=== PATIENT | male | born 1945 | race Two or more races ===

== ENCOUNTER 2017-05-08 11:59 | Inpatient (IN) | payer OTHER ==
[2017-05-08 12:17] VITALS: BMI 27.1
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
[2017-05-08] MEDS ORDERED: ACETAMINOPHEN 325 MG TABLET (FP) PO PRN (14:09)
[2017-05-08] MEDS ORDERED: MENTHOL/PHENOL 1 EACH UD MM PRN (14:09)
[2017-05-08] MEDS ORDERED: P-EPHED 60MG/TRIPROLIDI 2.5MG TABLET PO PRN (14:09)
[2017-05-08] MEDS ORDERED: MAGNESIUM CITRATE 300 ML BOTTLE PO PRN (14:09)
[2017-05-08] MEDS ORDERED: MAG HYDROX/AL HYDROX/SIMETH 30 ML UNIT-DOSE CUP PO PRN (14:09)
[2017-05-08] MEDS ORDERED: MAGNESIUM HYDROX 2400MG/30ML ORAL SUSPENSION 30 ML CUP PO PRN (14:09)
[2017-05-08] MEDS ORDERED: IBUPROFEN 400 MG TABLET (FP) PO PRN (14:09)
[2017-05-08] MEDS ORDERED: guaiFENesin/D-METHORPHAN HB 10 ML UNIT-DOSE CUPS PO PRN (14:09)
[2017-05-08] MEDS ORDERED: LOPERAMIDE HCL 2 MG CAPSULE PO PRN (14:09)
[2017-05-08] MEDS ORDERED: diphenhydrAMINE HCL 50 MG CAPSULE PO PRN (14:09)
[2017-05-08] MEDS ORDERED: METHADONE HCL 10 MG TABLET (FOR DETOX USE ONLY) PO ONE ×2 (14:55→23:00)
[2017-05-08] MEDS: diazePAM 5 MG TABLET PO PRN (16:48)
[2017-05-08] MEDS: NICOTINE 21 MG/24 HOURS TOPICAL PATCH TD SCH (16:51)
[2017-05-08 19:30] LABS: URINE APPEARANCE CLEAR; URINE BILIRUBIN NEGATIVE (NEGATIVE); URINE BLOOD NEGATIVE (NEGATIVE); URINE COLOR AMBER; URINE GLUCOSE (UA) NEGATIVE (NEGATIVE); URINE KETONE NEGATIVE (NEGATIVE); URINE LEUK ESTERASE NEGATIVE (NEGATIVE); URINE NITRITE NEGATIVE (NEGATIVE); URINE UROBILINOGEN 4.0 E.U/dl mg/dL (0.2-1.0)
[2017-05-08 19:41] LABS: HIV 1 & 2 AB NEGATIVE; HIV 1 AGp24 NEGATIVE
[2017-05-08 21:23] LABS: URINE PROTEIN 1+ (NEGATIVE)
[2017-05-08 21:31] LABS: GRANULAR CASTS 3 /lpf; URINE HYALINE CAST 7 /lpf; URINE MUCUS MODERATE; URINE RBC 2 /hpf (0-3); URINE WBC 2 /hpf (3-5)
[2017-05-08] MEDS: THIAMINE HCL 100 MG TABLET (FP) PO SCH (22:17)
[2017-05-09] MEDS: diazePAM 5 MG TABLET PO PRN ×2 (05:07→18:33)
--- NOTE | 2017-05-09 09:07 | CONSULT ---
[facility] Psychiatric Consult - Data Date of interview: 05/09/17 Admission source: [facility] Identifying data: This is 71 years old male with psychiatric hospitalization history intoxicated with: Cocaine, Xanax, Opioids, Nicotine, histopry of Alcohol abuse as well Substance Abuse History: Urine Drug Screen Results: TIM-Cocaine, OPI-Opiates, BZO-Benzodiazepines, MTD-Methadone. - Smoking Cessation. Smoking history: Current every day smoker. Have you smoked in the past 12 months: Yes. Aproximately how many cigarettes per day: 10. Hx Chewing Tobacco Use: No. Initiated information on smoking cessation: Yes. 'Breaking Loose' booklet given : 05/08/17. - Substance & Tx. History. Hx Alcohol Use: No. Hx Substance Use: Yes. Substance Use Type: Cocaine, Heroin. Hx Substance Use Treatment: Yes ( [facility]). - Substances Abused. Heroin. Route: Inhalation. Frequency: Daily. Amount used: 8 bags. Age of first use: 56. Date of Last Use: . Cocaine. Route: Inhalation. Frequency: 1-2 times per week. Amount used: $10. Age of first use: 56. Date of Last Use: 05/05/17 Medical History: Left Ankle deformity, denies any other significant medical problem Psychiatric History: Patient reports history of depression, as per computer carries MDD, denies suicidal history, reports unclear psychiatric admission on more then 10 years ago, reports currently taking : Zoloft 50mg poqd Physical/Sexual Abuse/Trauma History: Denies Additional Comment: Urine Drug Screen Results: TIM-Cocaine, OPI-Opiates, BZO- Benzodiazepines, MTD-Methadone Mental Status Exam - Mental Status Exam Alert and Oriented to: Person Patient Appearance: Well Groomed Mood: Apprehensive Affect: Mood Congruent Patient Behavior: Cooperative Speech Pattern: Appropriate Voice Loudness: Normal Thought Process: Goal Oriented Thought Disorder: Being Controlled Hallucinations: Denies Suicidal Ideation: Denies Homicidal Ideation: Denies Insight/Judgement: Fair Sleep: Difficulty falling asleep Appetite: Weight loss Muscle strength/Tone: Mild Hypotonicity Gait/Station: Deferred Additional Comments: Zoloft 50mg poqd Psychiatric Findings - Problem List ([place] 1, 2,3) (1) Benzodiazepine dependence Current Visit: No Status: Acute (2) Cocaine dependence Current Visit: No Status: Acute Qualifiers: Substance use status: uncomplicated Qualified Code(s): F14.20 - Cocaine dependence, uncomplicated (3) Major depressive disorder, single episode Current Visit: No Status: Acute (4) Opioid dependence Current Visit: No Status: Acute Qualifiers: Substance use status: in withdrawal Qualified Code(s): F11.23 - Opioid dependence with withdrawal (5) Substance induced mood disorder Current Visit: No Status: Acute (6) Alcohol abuse Current Visit: No Status: Chronic (7) Benzodiazepine abuse Current Visit: No Status: Chronic (8) Nicotine dependence Current Visit: No Status: Chronic Qualifiers: Nicotine product type: cigarettes Substance use status: uncomplicated Qualified Code(s): F17.210 - Nicotine dependence, cigarettes, uncomplicated - Initial Treatment Plan Initial Treatment Plan: Zoloft 50mg poqd
[2017-05-09] MEDS ORDERED: METHADONE HCL 10 MG TABLET (FOR DETOX USE ONLY) PO ONE (10:00)
[2017-05-09 10:34] LABS: ALK PHOS 98 U/L (45-117); ANION GAP 4 (8-16); BILIRUBIN,TOTAL 0.9 mg/dL (0.2-1.0); CALCIUM 8.9 mg/dL (8.5-10.1); CO2 29 mmol/L (21-32); GLUCOSE,RANDOM 81 mg/dL (74-106); SGOT/AST 117 U/L (15-37); SGPT/ALT 77 U/L (12-78); TOT PROT 7.3 g/dl (6.4-8.2)
[2017-05-09] MEDS: PRENATAL VITAMINS W/ FOLIC ACID TABLET (FP) PO SCH (10:35)
[2017-05-09] MEDS: SERTRALINE HCL 50 MG TABLET (FP) PO SCH (10:35)
[2017-05-09] MEDS: NICOTINE 21 MG/24 HOURS TOPICAL PATCH TD SCH (10:36)
[2017-05-09] MEDS: NICOTINE POLACRILEX 2 MG GUM BUC PRN (10:37)
[2017-05-09 10:50] LABS: MEAN PLT VOLUME 11.2 fl (7.5-11.1); RDW 14.5 % (11.9-15.9); WHITE BLOOD COUNT 2.5 K/mm3 (4.0-10.0)
--- NOTE | 2017-05-09 11:04 | PN ---
BHS COWS - Scale Resting Pulse: 0= CT 80 or Below Sweatin= Chills/Flushing Restless Observation: 3= Extraneous Movement Pupil Size: 2= Moderately Dilated Bone or Joint Aches: 4=Acute Joint/Muscle Pain Runny Nose/ Eye Tearin= Nasal Congestion GI Upset > 30mins: 1= Stomach Cramp Tremor Observation of Outstretched Hands: 2= Slight Tremor Visible Yawning Observation: 1= 1-2x During Session Anxiety or Irritability: 2=Irritable/Anxious Goose Flesh Skin: 0=Smooth Skin COWS Score: 17 BHS Progress Note (SOAP) Subjective: ANXIETY,SWEATS/CHILLS,FATIGUE. DENIES HX HTN BUT STATES BP GOES HIGH WHEN DETOXING. Objective: 05/09/17 11:03 Vital Signs Temperature 99.3 F 05/09/17 09:50 Pulse Rate 46 L 05/09/17 09:50 Respiratory Rate 18 05/09/17 09:50 Blood Pressure 155/77 05/09/17 09:50 O2 Sat by Pulse Oximetry (%) Laboratory Last Values WBC 2.5 K/mm3 (4.0-10.0) L 05/09/17 06:00 RBC 4.01 M/mm3 (4.00-5.60) 05/09/17 06:00 Hgb 12.0 GM/dL (11.7-16.9) 05/09/17 06:00 Hct 36.4 % (35.4-49) 05/09/17 06:00 MCV 91.0 fl (80-96) 05/09/17 06:00 MCH 30.0 pg (25.7-33.7) 05/09/17 06:00 MCHC 33.0 g/dl (32.0-35.9) 05/09/17 06:00 RDW 14.5 % (11.9-15.9) 05/09/17 06:00 MPV 11.2 fl (7.5-11.1) H D 05/09/17 06:00 Sodium 138 mmol/L (136-145) 05/09/17 06:00 Potassium 4.3 mmol/L (3.5-5.1) 05/09/17 06:00 Chloride 105 mmol/L (98-107) 05/09/17 06:00 Carbon Dioxide 29 mmol/L (21-32) 05/09/17 06:00 Anion Gap 4 (8-16) L 05/09/17 06:00 BUN 23 mg/dL (7-18) H D 05/09/17 06:00 Creatinine 1.0 mg/dL (0.7-1.3) 05/09/17 06:00 Creat Clearance w eGFR > 60 (>60) 05/09/17 06:00 Random Glucose 81 mg/dL (74-106) 05/09/17 06:00 Calcium 8.9 mg/dL (8.5-10.1) 05/09/17 06:00 Total Bilirubin 0.9 mg/dL (0.2-1.0) D 05/09/17 06:00 AST 117 U/L (15-37) H 05/09/17 06:00 ALT 77 U/L (12-78) 05/09/17 06:00 Alkaline Phosphatase 98 U/L (45-117) 05/09/17 06:00 Total Protein 7.3 g/dl (6.4-8.2) 05/09/17 06:00 Albumin 3.0 g/dl (3.4-5.0) L 05/09/17 06:00 Urine Color [place] 05/08/17 18:00 Urine Appearance Clear 05/08/17 18:00 Urine pH 5.0 (5.0-8.0) 05/08/17 18:00 Ur Specific [place] >= 1.030 (1.005-1.025) H 05/08/17 18:00 Urine Protein 1+ (NEGATIVE) H 05/08/17 18:00 Urine Glucose (UA) Negative (NEGATIVE) 05/08/17 18:00 Urine Ketones Negative (NEGATIVE) 05/08/17 18:00 Urine Blood Negative (NEGATIVE) 05/08/17 18:00 Urine Nitrite Negative (NEGATIVE) 05/08/17 18:00 Urine Bilirubin Negative (NEGATIVE) 05/08/17 18:00 Urine Urobilinogen 4.0 e.u/dl mg/dL (0.2-1.0) 05/08/17 18:00 Ur Leukocyte Esterase Negative (NEGATIVE) 05/08/17 18:00 Urine RBC 2 /hpf (0-3) 05/08/17 18:00 Urine WBC 2 /hpf (3-5) 05/08/17 18:00 Ur Epithelial Cells Rare /hpf (FEW) 05/08/17 18:00 Hyaline Casts 7 /lpf 05/08/17 18:00 Granular Casts 3 /lpf 05/08/17 18:00 Urine Mucus Moderate 05/08/17 18:00 HIV 1&2 Antibody Screen Negative 05/08/17 14:30 HIV P24 Antigen Negative 05/08/17 14:30 Assessment: 05/09/17 11:03 WITHDRAWAL SX Plan: CONTINUE DETOX
[2017-05-09 11:30] LABS: PLATELET ESTIMATE SLT DECREASED (NORMAL)
--- NOTE | 2017-05-09 12:01 | EKG ---
Test Reason : Blood Pressure : / mmHG Vent. Rate : 040 BPM Atrial Rate : 040 BPM P-R Int : 156 ms QRS Dur : 090 ms QT Int : 564 ms P-R-T Axes : 050 053 066 degrees QTc Int : 459 ms MARKED SINUS BRADYCARDIA MINIMAL VOLTAGE CRITERIA FOR LVH, MAY BE NORMAL VARIANT ABNORMAL ECG NO PREVIOUS ECGS AVAILABLE Confirmed by VALENTINA PERES MD ([id number]) on 05/09/2017 12:00:54 PM Referred By: Confirmed By:VALENTINA PERES MD
[2017-05-09] MEDS: THIAMINE HCL 100 MG TABLET (FP) PO SCH (22:38)
[2017-05-10] MEDS ORDERED: METHADONE HCL 5 MG TABLET (FOR DETOX USE ONLY) PO ONE (10:00)
[2017-05-10] MEDS: PRENATAL VITAMINS W/ FOLIC ACID TABLET (FP) PO SCH (10:21)
[2017-05-10] MEDS: NICOTINE POLACRILEX 2 MG GUM BUC PRN (10:21)
[2017-05-10] MEDS: NICOTINE 21 MG/24 HOURS TOPICAL PATCH TD SCH (10:21)
[2017-05-10] MEDS: SERTRALINE HCL 50 MG TABLET (FP) PO SCH (10:21)
--- NOTE | 2017-05-10 10:58 | PN ---
S COWS - Scale Resting Pulse: 0= MD 80 or Below Sweatin= Chills/Flushing Restless Observation: 3= Extraneous Movement Pupil Size: 2= Moderately Dilated Bone or Joint Aches: 4=Acute Joint/Muscle Pain Runny Nose/ Eye Tearin= Nasal Congestion GI Upset > 30mins: 1= Stomach Cramp Tremor Observation of Outstretched Hands: 1= Tremor [place], Not Seen Yawning Observation: 1= 1-2x During Session Anxiety or Irritability: 2=Irritable/Anxious Goose Flesh Skin: 0=Smooth Skin COWS Score: 16 S Progress Note (SOAP) Subjective: ANXIETY,SWEATS, FATIGUE. Objective: 05/10/17 10:56 Vital Signs Temperature 97.4 F L 05/10/17 09:16 Pulse Rate 74 05/10/17 09:16 Respiratory Rate 16 05/10/17 09:16 Blood Pressure 106/73 05/10/17 09:16 O2 Sat by Pulse Oximetry (%) Laboratory Last Values WBC 2.5 K/mm3 (4.0-10.0) L 05/09/17 06:00 RBC 4.01 M/mm3 (4.00-5.60) 05/09/17 06:00 Hgb 12.0 GM/dL (11.7-16.9) 05/09/17 06:00 Hct 36.4 % (35.4-49) 05/09/17 06:00 MCV 91.0 fl (80-96) 05/09/17 06:00 MCH 30.0 pg (25.7-33.7) 05/09/17 06:00 MCHC 33.0 g/dl (32.0-35.9) 05/09/17 06:00 RDW 14.5 % (11.9-15.9) 05/09/17 06:00 Plt Count No Result Required. 05/09/17 06:00 MPV 11.2 fl (7.5-11.1) H D 05/09/17 06:00 Platelet Estimate Slt decreased (NORMAL) 05/09/17 06:00 Platelet Comment Slt plt clumping 05/09/17 06:00 Sodium 138 mmol/L (136-145) 05/09/17 06:00 Potassium 4.3 mmol/L (3.5-5.1) 05/09/17 06:00 Chloride 105 mmol/L (98-107) 05/09/17 06:00 Carbon Dioxide 29 mmol/L (21-32) 05/09/17 06:00 Anion Gap 4 (8-16) L 05/09/17 06:00 BUN 23 mg/dL (7-18) H D 05/09/17 06:00 Creatinine 1.0 mg/dL (0.7-1.3) 05/09/17 06:00 Creat Clearance w eGFR > 60 (>60) 05/09/17 06:00 Random Glucose 81 mg/dL (74-106) 05/09/17 06:00 Calcium 8.9 mg/dL (8.5-10.1) 05/09/17 06:00 Total Bilirubin 0.9 mg/dL (0.2-1.0) D 05/09/17 06:00 AST 117 U/L (15-37) H 05/09/17 06:00 ALT 77 U/L (12-78) 05/09/17 06:00 Alkaline Phosphatase 98 U/L (45-117) 05/09/17 06:00 Total Protein 7.3 g/dl (6.4-8.2) 05/09/17 06:00 Albumin 3.0 g/dl (3.4-5.0) L 05/09/17 06:00 Urine Color [place] 05/08/17 18:00 Urine Appearance Clear 05/08/17 18:00 Urine pH 5.0 (5.0-8.0) 05/08/17 18:00 Ur Specific [place] >= 1.030 (1.005-1.025) H 05/08/17 18:00 Urine Protein 1+ (NEGATIVE) H 05/08/17 18:00 Urine Glucose (UA) Negative (NEGATIVE) 05/08/17 18:00 Urine Ketones Negative (NEGATIVE) 05/08/17 18:00 Urine Blood Negative (NEGATIVE) 05/08/17 18:00 Urine Nitrite Negative (NEGATIVE) 05/08/17 18:00 Urine Bilirubin Negative (NEGATIVE) 05/08/17 18:00 Urine Urobilinogen 4.0 e.u/dl mg/dL (0.2-1.0) 05/08/17 18:00 Ur Leukocyte Esterase Negative (NEGATIVE) 05/08/17 18:00 Urine RBC 2 /hpf (0-3) 05/08/17 18:00 Urine WBC 2 /hpf (3-5) 05/08/17 18:00 Ur Epithelial Cells Rare /hpf (FEW) 05/08/17 18:00 Hyaline Casts 7 /lpf 05/08/17 18:00 Granular Casts 3 /lpf 05/08/17 18:00 Urine Mucus Moderate 05/08/17 18:00 RPR Titer Nonreactive (NONREACTIVE) 05/09/17 06:00 HIV 1&2 Antibody Screen Negative 05/08/17 14:30 HIV P24 Antigen Negative 05/08/17 14:30 Assessment: 05/10/17 10:57 WITHDRAWAL SX Plan: CONTINUE DETOX
[2017-05-10] MEDS: THIAMINE HCL 100 MG TABLET (FP) PO SCH (22:37)
[2017-05-11] MEDS ORDERED: METHADONE HCL 5 MG TABLET (FOR DETOX USE ONLY) PO ONE (10:00)
[2017-05-11] MEDS: SERTRALINE HCL 50 MG TABLET (FP) PO SCH (10:08)
[2017-05-11] MEDS: PRENATAL VITAMINS W/ FOLIC ACID TABLET (FP) PO SCH (10:08)
[2017-05-11] MEDS: NICOTINE 21 MG/24 HOURS TOPICAL PATCH TD SCH (10:09)
--- NOTE | 2017-05-11 14:42 | PN ---
S Progress Note (SOAP) Subjective: Fatigue, Nausea, Body Aches, Tremors, Anxious. Objective: PT. A & O X 3, OBSERVED AMBULATING ON UNIT. NO ACUTE DISTRESS. PT. DENIES CHEST PAIN. 05/11/17 14:39 Vital Signs Temperature 98.0 F 05/11/17 13:41 Pulse Rate 47 L 05/11/17 13:41 Respiratory Rate 20 05/11/17 13:41 Blood Pressure 137/78 05/11/17 13:41 O2 Sat by Pulse Oximetry (%) Laboratory Tests 05/08/17 05/08/17 05/09/17 14:30 18:00 06:00 WBC 2.5 L RBC 4.01 Hgb 12.0 Hct 36.4 MCV 91.0 MCH 30.0 MCHC 33.0 RDW 14.5 Plt Count No Result Required. MPV 11.2 H D Platelet Estimate Slt decreased Platelet Comment Slt plt clumping Sodium Potassium Chloride Carbon Dioxide Anion Gap BUN Creatinine Creat Clearance w eGFR Random Glucose Calcium Total Bilirubin AST ALT Alkaline Phosphatase Total Protein Albumin Urine Color [place] Urine Appearance Clear Urine pH 5.0 Ur Specific [place] >= 1.030 H Urine Protein 1+ H Urine Glucose (UA) Negative Urine Ketones Negative Urine Blood Negative Urine Nitrite Negative Urine Bilirubin Negative Urine Urobilinogen 4.0 e.u/dl Ur Leukocyte Esterase Negative Urine RBC 2 Urine WBC 2 Ur Epithelial Cells Rare Hyaline Casts 7 Granular Casts 3 Urine Mucus Moderate RPR Titer HIV 1&2 Antibody Screen Negative HIV P24 Antigen Negative 05/09/17 05/09/17 06:00 06:00 WBC RBC Hgb Hct MCV MCH MCHC RDW Plt Count MPV Platelet Estimate Platelet Comment Sodium 138 Potassium 4.3 Chloride 105 Carbon Dioxide 29 Anion Gap 4 L BUN 23 H D Creatinine 1.0 Creat Clearance w eGFR > 60 Random Glucose 81 Calcium 8.9 Total Bilirubin 0.9 D AST 117 H ALT 77 Alkaline Phosphatase 98 Total Protein 7.3 Albumin 3.0 L Urine Color Urine Appearance Urine pH Ur Specific [place] Urine Protein Urine Glucose (UA) Urine Ketones Urine Blood Urine Nitrite Urine Bilirubin Urine Urobilinogen Ur Leukocyte Esterase Urine RBC Urine WBC Ur Epithelial Cells Hyaline Casts Granular Casts Urine Mucus RPR Titer Nonreactive HIV 1&2 Antibody Screen HIV P24 Antigen LABS NOTED. Assessment: 05/11/17 14:40 WITHDRAWAL SYMPTOMS. Plan: CONTINUE DETOX. PATIENT REPORTS THAT HE DOES CURRENTLY HAVE A PRIMARY CARE MEDICAL PROVIDER. PATIENT ADVISED TO FOLLOW-UP WITH ESTIMATOR LUMBER AFTER DISCHARGE FROM DETOX FOR LOW ADMISSION WBC AND PLATELET LEVELS.
[2017-05-11] MEDS: THIAMINE HCL 100 MG TABLET (FP) PO SCH (22:50)
[2017-05-12] MEDS ORDERED: METHADONE HCL 10 MG TABLET (FOR DETOX USE ONLY) PO ONE (10:00)
[2017-05-12] MEDS: PRENATAL VITAMINS W/ FOLIC ACID TABLET (FP) PO SCH (10:05)
[2017-05-12] MEDS: NICOTINE 21 MG/24 HOURS TOPICAL PATCH TD SCH (10:05)
[2017-05-12] MEDS: SERTRALINE HCL 50 MG TABLET (FP) PO SCH (10:05)
--- NOTE | 2017-05-12 14:07 | PN ---
S Progress Note (SOAP) Subjective: Anxious, restless, interrupted sleep, sweating Objective: 05/12/17 14:02 Last Vital Signs Temp Pulse Resp BP Pulse Ox 97.8 F 55 L 18 127/65 05/12/17 13:36 05/12/17 13:36 05/12/17 13:36 05/12/17 13:36 noted with bradycardia Laboratory Tests 05/08/17 05/08/17 05/09/17 14:30 18:00 06:00 WBC 2.5 L RBC 4.01 Hgb 12.0 Hct 36.4 MCV 91.0 MCH 30.0 MCHC 33.0 RDW 14.5 Plt Count No Result Required. MPV 11.2 H D Platelet Estimate Slt decreased Platelet Comment Slt plt clumping Sodium Potassium Chloride Carbon Dioxide Anion Gap BUN Creatinine Creat Clearance w eGFR Random Glucose Calcium Total Bilirubin AST ALT Alkaline Phosphatase Total Protein Albumin Urine Color [place] Urine Appearance Clear Urine pH 5.0 Ur Specific [place] >= 1.030 H Urine Protein 1+ H Urine Glucose (UA) Negative Urine Ketones Negative Urine Blood Negative Urine Nitrite Negative Urine Bilirubin Negative Urine Urobilinogen 4.0 e.u/dl Ur Leukocyte Esterase Negative Urine RBC 2 Urine WBC 2 Ur Epithelial Cells Rare Hyaline Casts 7 Granular Casts 3 Urine Mucus Moderate RPR Titer HIV 1&2 Antibody Screen Negative HIV P24 Antigen Negative 05/09/17 05/09/17 06:00 06:00 WBC RBC Hgb Hct MCV MCH MCHC RDW Plt Count MPV Platelet Estimate Platelet Comment Sodium 138 Potassium 4.3 Chloride 105 Carbon Dioxide 29 Anion Gap 4 L BUN 23 H D Creatinine 1.0 Creat Clearance w eGFR > 60 Random Glucose 81 Calcium 8.9 Total Bilirubin 0.9 D AST 117 H ALT 77 Alkaline Phosphatase 98 Total Protein 7.3 Albumin 3.0 L Urine Color Urine Appearance Urine pH Ur Specific [place] Urine Protein Urine Glucose (UA) Urine Ketones Urine Blood Urine Nitrite Urine Bilirubin Urine Urobilinogen Ur Leukocyte Esterase Urine RBC Urine WBC Ur Epithelial Cells Hyaline Casts Granular Casts Urine Mucus RPR Titer Nonreactive HIV 1&2 Antibody Screen HIV P24 Antigen Labs noted: bun 23, abnormal UA Assessment: 05/12/17 14:02 Withdrawal symptoms Noted with prerenal azotemia and abnormal UA Plan: Continue detox Bradycardia: asymptomatic, encouraged to drink lots of water Prerenal azotemia: encouraged to drink lots of water Abnormal UA: encouraged to drink lots of water, repeat UA
[2017-05-12 19:26] LABS: URINE APPEARANCE CLEAR; URINE BILIRUBIN NEGATIVE (NEGATIVE); URINE BLOOD NEGATIVE (NEGATIVE); URINE COLOR AMBER; URINE GLUCOSE (UA) NEGATIVE (NEGATIVE); URINE KETONE NEGATIVE (NEGATIVE); URINE LEUK ESTERASE NEGATIVE (NEGATIVE); URINE NITRITE NEGATIVE (NEGATIVE); URINE PROTEIN NEGATIVE (NEGATIVE)
[2017-05-12] MEDS: THIAMINE HCL 100 MG TABLET (FP) PO SCH (22:36)
[2017-05-13] MEDS ORDERED: METHADONE HCL 5 MG TABLET (FOR DETOX USE ONLY) PO ONE (06:00)
[2017-05-13] MEDS: SERTRALINE HCL 50 MG TABLET (FP) PO SCH (10:03)
[2017-05-13] MEDS: PRENATAL VITAMINS W/ FOLIC ACID TABLET (FP) PO SCH (10:04)
[2017-05-13] MEDS: NICOTINE 21 MG/24 HOURS TOPICAL PATCH TD SCH (10:04)
--- NOTE | 2017-05-13 12:28 | PN ---
S Progress Note (SOAP) Subjective: Sweating,interrupted sleep,restless. Objective: 05/13/17 12:27 Vital Signs - 8 hr 05/13/17 09:18 Temperature 97.6 F Pulse Rate 50 L Respiratory 18 Rate Blood Pressure 129/81 Laboratory Last Values WBC 2.5 K/mm3 (4.0-10.0) L 05/09/17 06:00 RBC 4.01 M/mm3 (4.00-5.60) 05/09/17 06:00 Hgb 12.0 GM/dL (11.7-16.9) 05/09/17 06:00 Hct 36.4 % (35.4-49) 05/09/17 06:00 MCV 91.0 fl (80-96) 05/09/17 06:00 MCH 30.0 pg (25.7-33.7) 05/09/17 06:00 MCHC 33.0 g/dl (32.0-35.9) 05/09/17 06:00 RDW 14.5 % (11.9-15.9) 05/09/17 06:00 Plt Count No Result Required. 05/09/17 06:00 MPV 11.2 fl (7.5-11.1) H D 05/09/17 06:00 Platelet Estimate Slt decreased (NORMAL) 05/09/17 06:00 Platelet Comment Slt plt clumping 05/09/17 06:00 Sodium 138 mmol/L (136-145) 05/09/17 06:00 Potassium 4.3 mmol/L (3.5-5.1) 05/09/17 06:00 Chloride 105 mmol/L (98-107) 05/09/17 06:00 Carbon Dioxide 29 mmol/L (21-32) 05/09/17 06:00 Anion Gap 4 (8-16) L 05/09/17 06:00 BUN 23 mg/dL (7-18) H D 05/09/17 06:00 Creatinine 1.0 mg/dL (0.7-1.3) 05/09/17 06:00 Creat Clearance w eGFR > 60 (>60) 05/09/17 06:00 Random Glucose 81 mg/dL (74-106) 05/09/17 06:00 Calcium 8.9 mg/dL (8.5-10.1) 05/09/17 06:00 Total Bilirubin 0.9 mg/dL (0.2-1.0) D 05/09/17 06:00 AST 117 U/L (15-37) H 05/09/17 06:00 ALT 77 U/L (12-78) 05/09/17 06:00 Alkaline Phosphatase 98 U/L (45-117) 05/09/17 06:00 Total Protein 7.3 g/dl (6.4-8.2) 05/09/17 06:00 Albumin 3.0 g/dl (3.4-5.0) L 05/09/17 06:00 Urine Color [place] 05/12/17 19:16 Urine Appearance Clear 05/12/17 19:16 Urine pH 5.0 (5.0-8.0) 05/12/17 19:16 Ur Specific [place] 1.025 (1.005-1.025) 05/12/17 19:16 Urine Protein Negative (NEGATIVE) 05/12/17 19:16 Urine Glucose (UA) Negative (NEGATIVE) 05/12/17 19:16 Urine Ketones Negative (NEGATIVE) 05/12/17 19:16 Urine Blood Negative (NEGATIVE) 05/12/17 19:16 Urine Nitrite Negative (NEGATIVE) 05/12/17 19:16 Urine Bilirubin Negative (NEGATIVE) 05/12/17 19:16 Urine Urobilinogen 2.0 mg/dL (0.2-1.0) 05/12/17 19:16 Ur Leukocyte Esterase Negative (NEGATIVE) 05/12/17 19:16 Urine RBC 2 /hpf (0-3) 05/08/17 18:00 Urine WBC 2 /hpf (3-5) 05/08/17 18:00 Ur Epithelial Cells Rare /hpf (FEW) 05/08/17 18:00 Hyaline Casts 7 /lpf 05/08/17 18:00 Granular Casts 3 /lpf 05/08/17 18:00 Urine Mucus Moderate 05/08/17 18:00 RPR Titer Nonreactive (NONREACTIVE) 05/09/17 06:00 HIV 1&2 Antibody Screen Negative 05/08/17 14:30 HIV P24 Antigen Negative 05/08/17 14:30 labs noted Assessment: 05/13/17 12:28 Withdrawal sx. Plan: Continue detox
[2017-05-13] MEDS: THIAMINE HCL 100 MG TABLET (FP) PO SCH (22:31)
[2017-05-14 06:11] VITALS: BP 158/77; PULSE 49; TEMP 98.3
--- NOTE | 2017-05-14 13:06 | DS ---
[facility] Detox Discharge Summary Admission Date: 05/08/17 Discharge Date: 05/14/17 - History Present History: Cocaine Dependence, Opioid Dependence, Sedative Dependence Pertinent Past History: Deformity left Ankle - Physical Exam Results Vital Signs: Vital Signs Temperature 98.3 F 05/14/17 06:10 Pulse Rate 49 L 05/14/17 06:10 Respiratory Rate 18 05/14/17 06:10 Blood Pressure 158/77 05/14/17 06:10 O2 Sat by Pulse Oximetry (%) Pertinent Admission Physical Exam Findings: Withdrawal sx. Laboratory Last Values WBC 2.5 K/mm3 (4.0-10.0) L 05/09/17 06:00 RBC 4.01 M/mm3 (4.00-5.60) 05/09/17 06:00 Hgb 12.0 GM/dL (11.7-16.9) 05/09/17 06:00 Hct 36.4 % (35.4-49) 05/09/17 06:00 MCV 91.0 fl (80-96) 05/09/17 06:00 MCH 30.0 pg (25.7-33.7) 05/09/17 06:00 MCHC 33.0 g/dl (32.0-35.9) 05/09/17 06:00 RDW 14.5 % (11.9-15.9) 05/09/17 06:00 Plt Count No Result Required. 05/09/17 06:00 MPV 11.2 fl (7.5-11.1) H D 05/09/17 06:00 Platelet Estimate Slt decreased (NORMAL) 05/09/17 06:00 Platelet Comment Slt plt clumping 05/09/17 06:00 Sodium 138 mmol/L (136-145) 05/09/17 06:00 Potassium 4.3 mmol/L (3.5-5.1) 05/09/17 06:00 Chloride 105 mmol/L (98-107) 05/09/17 06:00 Carbon Dioxide 29 mmol/L (21-32) 05/09/17 06:00 Anion Gap 4 (8-16) L 05/09/17 06:00 BUN 23 mg/dL (7-18) H D 05/09/17 06:00 Creatinine 1.0 mg/dL (0.7-1.3) 05/09/17 06:00 Creat Clearance w eGFR > 60 (>60) 05/09/17 06:00 Random Glucose 81 mg/dL (74-106) 05/09/17 06:00 Calcium 8.9 mg/dL (8.5-10.1) 05/09/17 06:00 Total Bilirubin 0.9 mg/dL (0.2-1.0) D 05/09/17 06:00 AST 117 U/L (15-37) H 05/09/17 06:00 ALT 77 U/L (12-78) 05/09/17 06:00 Alkaline Phosphatase 98 U/L (45-117) 05/09/17 06:00 Total Protein 7.3 g/dl (6.4-8.2) 05/09/17 06:00 Albumin 3.0 g/dl (3.4-5.0) L 05/09/17 06:00 Urine Color [place] 05/12/17 19:16 Urine Appearance Clear 05/12/17 19:16 Urine pH 5.0 (5.0-8.0) 05/12/17 19:16 Ur Specific [place] 1.025 (1.005-1.025) 05/12/17 19:16 Urine Protein Negative (NEGATIVE) 05/12/17 19:16 Urine Glucose (UA) Negative (NEGATIVE) 05/12/17 19:16 Urine Ketones Negative (NEGATIVE) 05/12/17 19:16 Urine Blood Negative (NEGATIVE) 05/12/17 19:16 Urine Nitrite Negative (NEGATIVE) 05/12/17 19:16 Urine Bilirubin Negative (NEGATIVE) 05/12/17 19:16 Urine Urobilinogen 2.0 mg/dL (0.2-1.0) 05/12/17 19:16 Ur Leukocyte Esterase Negative (NEGATIVE) 05/12/17 19:16 Urine RBC 2 /hpf (0-3) 05/08/17 18:00 Urine WBC 2 /hpf (3-5) 05/08/17 18:00 Ur Epithelial Cells Rare /hpf (FEW) 05/08/17 18:00 Hyaline Casts 7 /lpf 05/08/17 18:00 Granular Casts 3 /lpf 05/08/17 18:00 Urine Mucus Moderate 05/08/17 18:00 RPR Titer Nonreactive (NONREACTIVE) 05/09/17 06:00 HIV 1&2 Antibody Screen Negative 05/08/17 14:30 HIV P24 Antigen Negative 05/08/17 14:30 labs noted - Treatment Hospital Course: Detox Protocol Followed, Detoxed Safely, Responded well, Discharged Condition Good, Rehab Referral Accepted Patient has Accepted a Rehab Referral to: [facility] & [facility] - Medication Discharge Medications: Ambulatory Orders Sertraline HCl [Zoloft -] 50 mg PO DAILY 05/08/17 Sertraline HCl [Zoloft -] 50 mg PO DAILY #30 tablet 05/09/17 - Diagnosis (1) Cocaine dependence Status: Acute Qualifiers: Substance use status: uncomplicated Qualified Code(s): F14.20 - Cocaine dependence, uncomplicated (2) Major depressive disorder, single episode Status: Acute (3) Opioid dependence with withdrawal Status: Acute (4) Substance induced mood disorder Status: Acute (5) Nicotine dependence Status: Chronic Qualifiers: Nicotine product type: cigarettes Substance use status: uncomplicated Qualified Code(s): F17.210 - Nicotine dependence, cigarettes, uncomplicated - AMA Did Patient Leave Against Medical Advice: No
== END 2017-05-14 08:34 | disposition home or self-care (01) | DRG 897 ==
LOC: YASAS 11:59 → Y3N 14:48
PROVIDERS: ADMIT Internal Medicine; ATTEND Internal Medicine
PROC: HZ2ZZZZ Detoxification Services for Substance Abuse Treatment (ICD-10-PCS; principal; 2017-05-08)
DX: F19.230 Other psychoactive substance dependence with withdrawal, uncomplicated (principal); F13.20 Sedative, hypnotic or anxiolytic dependence, uncomplicated; F14.20 Cocaine dependence, uncomplicated; F11.23 Opioid dependence with withdrawal; F17.210 Nicotine dependence, cigarettes, uncomplicated; F32.9 Major depressive disorder, single episode, unspecified; R79.89 Other specified abnormal findings of blood chemistry; R82.90 Unspecified abnormal findings in urine; R00.1 Bradycardia, unspecified
CPT/HCPCS: 36415; 80053; 81003; 81015; 85027; 86593; 87389; 93005; 93010